=== PATIENT | male | born 1990 | race Two or more races ===

== ENCOUNTER 2021-12-15 13:16 | Emergency (ER) | payer SELFPAY ==
[~2021-12-15] VITALS: Ht 177.8 cm; Wt 122.5 kg
[2021-12-15] MEDS ORDERED: MORPHINE SULFATE 4 MG/ML SYR/VIAL IV ONE (13:30)
[2021-12-15] MEDS ORDERED: PANTOPRAZOLE 40 MG/10 ML VIAL INJ IV ONE (13:30)
[2021-12-15] MEDS ORDERED: PROCHLORPERAZINE EDISYLATE 5 MG/ML 2ML VIAL IV ONE (13:30)
[2021-12-15] MEDS ORDERED: SODIUM CHLORIDE 0.9% 1,000 ML IVB ONE (13:30)
[2021-12-15 14:35] LABS: Urine Bacteria NONE SEEN /hpf (None Seen); Urine Blood Negative /uL (Negative); Urine Mucus FEW (None Seen); Urine Specific Gravity 1.026 (1.001-1.035); Urine WBC 2 /hpf (0 - 3)
[2021-12-15 15:40] LABS: Basophils # (auto) 0.1 10 ^3/uL (0-0.2); Basophils % (auto) 0.5 % (0.0-2.0); Eosinophils # (auto) 0 10 ^3/uL (0-0.8); Eosinophils % (auto) 0.1 % (0.0-7.0); Hematocrit 47.5 % (41.0-53.0); Hemoglobin 16.7 g/dL (13.5-17.5); Lymphocytes # (auto) 1.4 10 ^3/uL (0.4-5.4); Lymphocytes % (auto) 9.2 % (10.0-50.0); Mean Corpuscular Hemoglobin 30.4 pg (28.0-32.0); Mean Corpuscular Hgb Conc. 35.2 g/dL (32.0-36.0); Mean Corpuscular Volume 86.4 fL (80.0-100.0); Monocytes # (auto) 0.8 10 ^3/uL (0-1.3); Neutrophils # (auto) 13.3 10 ^3/uL (1.6-8.6); Neutrophils % (auto) 85.2 % (37.0-80.0); Nucleated Red Blood Cells % 0.5 %; White Blood Cell 15.6 10^3/uL (4.4-10.8)
[2021-12-15 15:53] LABS: Amylase 308 U/L (25-115); Lipase 317 U/L (73-393)
[2021-12-15 15:54] LABS: Albumin 4.4 g/dL (3.4-5.0); Calcium 9.3 mg/dL (8.5-10.1); Potassium 3.5 mmol/L (3.5-5.1)
[2021-12-15 15:57] LABS: BUN/Creatinine Ratio 9.2; Bilirubin, Total 0.8 mg/dL (0.2-1.0); Total Protein 8.3 g/dL (6.4-8.2)
[2021-12-15] MEDS ORDERED: PANT40TA2 PO (15:57)
[2021-12-15] MEDS ORDERED: ONDA-144 PO (15:57)
[2021-12-15 16:30] VITALS: BP 156/86
== END 2021-12-15 17:02 | disposition home or self-care (01) ==
LOC: ER 13:16
DX: F12.188 Cannabis abuse with other cannabis-induced disorder (principal)
CPT/HCPCS: 36415; 76705; 80053; 81001; 82150; 83690; 85025; 96361; 96374; 96375; 99284; C9113; J0780; J7030

== ENCOUNTER 2024-05-22 13:19 | Inpatient (IN) | payer MEDICAID, OTHER ==
[~2024-05-22] VITALS: Ht 177.8 cm; Wt 94.2 kg
[~2024-05-22 13:19] MED LIST: ONDA-144 PO; PANT40TA2 PO
[2024-05-22 13:40] LABS: Eosinophils # (auto) 0 10 ^3/uL (0-0.8); Eosinophils % (auto) 0.1 % (0.0-7.0); Lymphocytes # (auto) 1.5 10 ^3/uL (0.4-5.4); Monocytes # (auto) 0.9 10 ^3/uL (0-1.3)
[2024-05-22 13:42] LABS: Basophils # (auto) 0.1 10 ^3/uL (0-0.2); Basophils % (auto) 0.5 % (0.0-2.0); Hematocrit 49.5 % (41.0-53.0); Hemoglobin 18.1 g/dL (13.5-17.5); Lymphocytes % (auto) 11.2 % (10.0-50.0); Mean Corpuscular Hemoglobin 31.4 pg (28.0-32.0); Monocytes % (auto) 6.5 % (0.0-12.0); Neutrophils # (auto) 10.7 10 ^3/uL (1.6-8.6); Neutrophils % (auto) 81.7 % (37.0-80.0); Red Blood Cells 5.76 10^6/uL (4.5-5.90); Red Cell Distribution Width 13.5 % (11.8-14.3); White Blood Cell 13.1 10^3/uL (4.4-10.8)
[2024-05-22 13:48] LABS: Mean Corpuscular Hgb Conc. 36.5 g/dL (32.0-36.0)
[2024-05-22 13:48] LABS: Urine Bacteria None Seen /hpf (None Seen)
[2024-05-22 13:59] LABS: Urine Blood TRACE /uL (Negative); Urine Clarity Clear (Clear); Urine Color Yellow (Yellow); Urine Hyaline Cast FEW /lpf (0 - 2); Urine Mucus FEW (None Seen); Urine Protein, UAD 1+ (Negative); Urine Specific Gravity 1.029 (1.001-1.035); Urine Urobilinogen 3 mg/dL (Negative); Urine WBC 1 /hpf (0 - 3)
[2024-05-22 14:01] LABS: Alanine Aminotransferase 24 U/L (7-40); Albumin 5.4 g/dL (3.2-4.8); Alkaline Phosphatase 67 U/L (46-116); Anion Gap 18 (5-15); Aspartate Aminotransferase 14 U/L (13-40); BUN/Creatinine Ratio 5.1 (10.0-20.0); Blood Urea Nitrogen 6 mg/dL (9-23); Calcium 10.7 mg/dL (8.7-10.4); Carbon Dioxide 19 mmol/L (20-30); Chloride 102 mmol/L (98-107); Glucose 112 mg/dL (74-106); Lipase 40 U/L (12-53); Potassium 3.4 mmol/L (3.5-5.1); Sodium 139 mmol/L (136-145)
[2024-05-22 14:02] LABS: Bilirubin, Total 1.7 mg/dL (0.2-1.0); Total Protein 8.3 g/dL (5.7-8.2)
[2024-05-22 14:07] LABS: Amphetamine Screen, Urine Neg (NEGATIVE); Barbiturate Scree,Urine Neg (NEGATIVE); Benzodiazephine Screen, Urine Neg (NEGATIVE); Cocaine Screen, Urine Neg (NEGATIVE); Opiate Scree,Urine Neg (NEGATIVE)
[2024-05-22 14:08] LABS: Cannabinoid Screen, Urine Pos (NEGATIVE); Phencyclidine Screen, Urine Neg (NEGATIVE)
[2024-05-22 14:10] VITALS: PULSE 99; RESP 16; O2SAT 98
[2024-05-22] MEDS: SODIUM CHLORIDE 0.9% 1,000 ML IV ONE (14:17)
[2024-05-22] MEDS: ONDANSETRON HCL 4 MG/2 ML VIAL IV ONE (14:18)
[2024-05-22] MEDS ORDERED: NITROGLYCERIN 0.4 MG SL TAB SL PRN (15:30)
[2024-05-22] MEDS ORDERED: DEXTROSE (50%) 50ML SYRG IV PRN (15:30)
[2024-05-22] MEDS ORDERED: DOCUSATE SOD 100 MG CAP PO PRN (15:30)
[2024-05-22] MEDS ORDERED: ONDANSETRON HCL 4 MG/2 ML VIAL IV PRN (15:30)
[2024-05-22] MEDS: SODIUM CHLORIDE 0.9% 1,000 ML IV SCH (16:11)
[2024-05-22] MEDS: PANTOPRAZOLE 40 MG/10 ML VIAL INJ IV ONE (16:12)
[2024-05-22 16:29] LABS: Magnesium 1.7 mg/dL (1.6-2.6)
[2024-05-22 16:30] LABS: Phosphorus 2.3 mg/dL (2.4-5.1)
[2024-05-22] MEDS: InsuLIN REG 1unit/0.01ml Soln (100units/ml) SC SCH (18:00)
[2024-05-22] MEDS: ACCU-CHEK COMFORT CURVE STRIP VI SCH (18:49)
[2024-05-22] MEDS: POTASSIUM CHL 20MEQ/100ML 100 ML IV SCH (19:00)
[2024-05-22] MEDS: MORPHINE SULFATE INJ 2 MG/ml SYRG IV PRN (19:00)
[2024-05-22 20:00] VITALS: O2SAT 100
[2024-05-22 21:00] VITALS: BP 114/70; PULSE 65; RESP 17; TEMP 98.3; O2SAT 100
[2024-05-23 01:00] VITALS: BP 110/70; PULSE 75; RESP 18; TEMP 98.2; O2SAT 98
[2024-05-23 05:00] VITALS: BP 124/72; PULSE 58; RESP 18; TEMP 98.2; O2SAT 100
[2024-05-23 05:22] LABS: Basophils # (auto) 0.1 10 ^3/uL (0-0.2); Basophils % (auto) 0.7 % (0.0-2.0); Eosinophils # (auto) 0.1 10 ^3/uL (0-0.8); Eosinophils % (auto) 0.8 % (0.0-7.0); Hematocrit 41.8 % (41.0-53.0); Hemoglobin 15.1 g/dL (13.5-17.5); Lymphocytes % (auto) 31.8 % (10.0-50.0); Mean Corpuscular Hemoglobin 31.4 pg (28.0-32.0); Mean Corpuscular Hgb Conc. 36.2 g/dL (32.0-36.0); Mean Corpuscular Volume 86.7 fL (80.0-100.0); Monocytes # (auto) 0.9 10 ^3/uL (0-1.3); Monocytes % (auto) 9.2 % (0.0-12.0); Neutrophils # (auto) 5.5 10 ^3/uL (1.6-8.6); Neutrophils % (auto) 57.5 % (37.0-80.0); Red Blood Cells 4.82 10^6/uL (4.5-5.90); Red Cell Distribution Width 13.5 % (11.8-14.3); White Blood Cell 9.6 10^3/uL (4.4-10.8)
[2024-05-23 05:37] LABS: Alanine Aminotransferase 16 U/L (7-40); Albumin 4.2 g/dL (3.2-4.8); Alkaline Phosphatase 51 U/L (46-116); Anion Gap 8 (5-15); Aspartate Aminotransferase < 8 U/L (13-40); Calcium 9.6 mg/dL (8.7-10.4); Carbon Dioxide 25 mmol/L (20-30); Chloride 109 mmol/L (98-107); Glucose 85 mg/dL (74-106); Potassium 4.2 mmol/L (3.5-5.1); Sodium 142 mmol/L (136-145)
[2024-05-23 05:38] LABS: Bilirubin, Total 1.3 mg/dL (0.2-1.0); Blood Urea Nitrogen < 5 mg/dL (9-23); Total Protein 6.3 g/dL (5.7-8.2)
[2024-05-23 09:00] VITALS: BP_SYST 115; BP_SYST 123; BP_DIAS 77; BP_DIAS 81; PULSE 109; PULSE 61; RESP 17; TEMP 98.2; O2SAT 98
[2024-05-23] MEDS: PANTOPRAZOLE 40 MG/10 ML VIAL INJ IV SCH (09:40)
[2024-05-23 13:00] VITALS: BP 121/78; PULSE 62; RESP 17; TEMP 97.7; O2SAT 99
[2024-05-23] MEDS ORDERED: PANT40TA2 PO (15:28)
[2024-05-23] MEDS ORDERED: GICOCKTAIL PO ×2 (15:29→18:32)
[2024-05-23] MEDS: MAALOX PLUS or MAALOX 30 ML PO PRN (16:04)
[2024-05-23 16:13] VITALS: TEMP 36.5
== END 2024-05-23 16:30 | disposition home or self-care (01) | DRG 243 ==
LOC: ER 13:19 → OVERFLOW 15:51 → ER 15:51 → WEST WING 17:22
PROVIDERS: ADMIT Internal Medicine Pulmonary Disease; ATTEND Emergency Medicine
DX: K21.9 Gastro-esophageal reflux disease without esophagitis (principal); E87.29 Other acidosis; T73.0XXA Starvation, initial encounter; E86.0 Dehydration; D72.829 Elevated white blood cell count, unspecified; R11.2 Nausea with vomiting, unspecified; X58.XXXA Exposure to other specified factors, initial encounter; R73.9 Hyperglycemia, unspecified; Z83.3 Family history of diabetes mellitus; F12.90 Cannabis use, unspecified, uncomplicated
CPT/HCPCS: 36415; 74176; 76705; 80053; 80307; 81001; 82010; 82607; 82962; 83036; 83605; 83690; 83735; 84100; 85025; 87045; 87427; 87493; G0378; J2405; J2470; J3480